=== PATIENT | male | born 1985 | race Caucasian/White ===

== ENCOUNTER → 2017-10-19 09:31 | Outpatient (CLI) | payer BC, SELFPAY ==
--- NOTE | 2017-10-19 09:39 | XR_ITS ---
XR hip RT 2-3V w/pelvis Ordering Physician: Lainey Escalante Patient Age: 32 years: Male HISTORY: ITS.REASON: CONTUSION OF RT HIP TECHNIQUE: AP frog-leg view right hip along with AP pelvis. Next field COMPARISON :None FINDINGS Right hip intact no fracture. Femoral head and neck and trochanteric region intact. The hip joint spaces well-maintained. Vague 12 mm mildly sclerotic area at the central at intertrochanteric region on AP view; and residing at the anterior osseous cortex, on the frog-leg view is noted. Likely reflects a small benign focus. & Doubt of significance but if pain persists or progresses this may warrant follow-up. Particular if gives history of significant pain which improves with aspirin . Osseous pelvis is intact. Left hip unremarkable. Sacrum, iliac bone superior and inferior ramus unremarkable... IMPRESSION: Right hip intact. No significant appearing findings. Minor observations in text.
== END ==
PROVIDERS: PCP Family Medicine; Visit Provider Nurse Practitioner
DX: S70.01XA Contusion of right hip, initial encounter (principal)
CPT/HCPCS: 73502

== ENCOUNTER → 2020-08-07 14:48 | Outpatient (CLI) | payer BC, SELFPAY ==
--- NOTE | 2020-08-07 14:59 | XR_ITS ---
PROCEDURE: XR MULTIPLE SPINE 6+V CLINICAL INDICATION: LOW BACK PAIN,SACROILIAC JOINT PAIN COMPARISON: No exams were available for comparison FINDINGS: No acute fractures or traumatic subluxation. Bone density is normal. The visualized thoracic and lumbar spine is un demonstrates normal alignment without a significant degenerative changes. Paravertebral soft tissues are unremarkable. Visualized lungs are clear. Bilateral visualized sacroiliac joints demonstrate no evidence of significant degenerative changes or asymmetric sclerosis. No evidence of sacroiliitis. IMPRESSION: Unremarkable thoracic and lumbar spine radiographs. Dictated by: Chiquita Piper 08/07/2020 17:18 Chiquita Piper in [facility] 08/07/2020 17:18
== END ==
PROVIDERS: PCP Family Medicine; Visit Provider Family Medicine
DX: M54.5 Low back pain (principal); M53.3 Sacrococcygeal disorders, not elsewhere classified
CPT/HCPCS: 72084

== ENCOUNTER 2020-08-20 07:56 | Outpatient (RCR) | payer BC, SELFPAY ==
--- NOTE | 2020-08-20 08:45 | HMH.PTOPEV ---
PT Outpatient Evaluation Rehab PT Outpatient Evaluation Start: 08/20/20 08:35 Freq: Status: Active Protocol: Document 08/20/20 08:35 CYNDIE (Rec: 08/20/20 08:45 CYNDIE [id number]) Electronically Signed By Ramirez Mckinney, PT 08/20/20 08:35 Outpatient Therapy Subjective History Subjective History Pt reports h/o chronic LBP since injury on 10/02/17 d/t fall from 2nd to 1st floor onto floor joists. Pt reports initial injury to B feet, R knee, and low back. Pt reports intermittent exacerbations of LBP since injury w/most recent ~3 weeks d/t heavy lifting episode. Pt reports R> L sided LBP from T-L junction to R glut area. Chief Complaint Pain,Spasms,Stiff Symptom Type Ache,Throb,Sharp,Dull Symptoms Relieved By Rest/Positioning,Heat Symptoms Aggravated By Bending/Stooping,Physical Activity,Lifting Prior Functional Limitations Lifting,Sitting,Bending/ Stooping Current Functional Limitations Lifting,Housework,Sitting, Bending/Stooping Symptom Description Constant but Variable Level of pain today (0-10) 6 Pain scale - at its best (0-10) 2 Pain scale - at its worst (0-10) 9 Lumbopelvic Eval Posture Thoracic Spine Posture Standing Position Neutral Lumbar Spine Posture Standing Position Flattened Assistive device Assistive Devices None / NA Gait Observation General Gait Pattern Observation No Deviations/Normal Palapation tenderness left lumbar spinal tenderness Yes: 2/4 paraspinal tenderness Yes: 2/4 right thoracic spinal tenderness Yes: 2/4 lumbar spinal tenderness Yes: 3/4 paraspinal tenderness Yes: 3/4 buttock tenderness Yes: 3/4 Lumbar/Sacral Palpation Findings Tenderness,Trigger Point, Muscle Guarding Accessory Movement T-spine Vertebrae Accessory Movements Central [place] that Elicit Symptoms T11 bilateral T12 bilateral L-spine Vertebrae Accessory Movements [place] that Elicit Symptoms L2 bilateral L3 bilateral L4 bilateral L5 bilateral Range of Motion Lumbar Spine Active Flexion Range of 0-70 Motion (degrees) Lumbar Spine Active Extension Range of 0-20 Motion (degrees)
== END 2020-08-20 07:59 | disposition home or self-care (01) ==
LOC: PT 07:56
PROVIDERS: PCP Family Medicine; Visit Provider Family Medicine
DX: M54.5 Low back pain (principal)
CPT/HCPCS: 97163

== ENCOUNTER 2024-01-18 10:23 | Outpatient (CLI) | payer OTHER, SELFPAY ==
[2024-01-18 20:29] LABS: T4 (Thyroxine) 8.5 ug/dl (5.53-11.0)
[2024-01-18 20:41] LABS: Thyroid Stimulating Hormone 1.42 uIU/mL (0.465-4.68)
== END 2024-01-18 23:59 | disposition home or self-care (01) ==
LOC: LAB.DROPOF 01-19 10:23
PROVIDERS: PCP Nurse Practitioner Acute Care; Visit Provider Nurse Practitioner Acute Care
DX: R53.83 Other fatigue (principal)
CPT/HCPCS: 84436; 84443

== ENCOUNTER 2024-02-24 08:00 | Outpatient (RCR) | payer OTHER, SELFPAY | END 2024-02-24 23:59 | disposition home or self-care (01) | LOC: OT 08:00 | PROVIDERS: PCP Nurse Practitioner Acute Care; Visit Provider Physician Assistant | DX: M25.531 Pain in right wrist (principal); M25.532 Pain in left wrist; Z98.890 Other specified postprocedural states | CPT/HCPCS: 97014; 97035; 97110; 97140; 97166; 97168; G0283 ==

== ENCOUNTER 2024-08-10 17:53 | Outpatient (CLI) | payer OTHER, SELFPAY ==
[2024-08-10 21:49] LABS: Coronavirus 19, PCR Not Detected (NotDetected); Influenza A, PCR Not Detected (NotDetected); Influenza B, PCR Not Detected (NotDetected); Respiratory Syncytial Virus Not Detected (NotDetected)
[2024-08-11 00:33] LABS: Human Rhinovirus Detected (NotDetected)
--- OUTSIDE RECORDS SUMMARY | 2024-08-12 13:36 | XMS_ITS | Continuity of Care Document ---
Author Organization [facility]. If a dditional information is needed, contact Health Information Management at [phone] [place] [address] Phone Care Team Providers Care Lotteries Agent Name Role Phone Unavailable Unavailable Unavailable Unavailable Unavailable Unavailable Unavailable Unavailable Unavailable Unavailable Unavailable Unavailable Unavailable Unavailable Unavailable Unavailable Unavailable Unavailable Unavailable Unavailable Unavailable Unavailable Unavailable Unavailable Problems Gastroenteritis Onset:23-Apr-2023 Migue Wolfe PA-C Status:Acute Nausea and vomiting Onset:23-Apr-2023 Migue Wolfe PA-C Status:Acute Anesthetics adverse reaction Onset:05-Nov-2022 Benjamin Daly MD Status:Acute Impaired cognition Onset:05-Nov-2022 Benjamin Daly MD Status:Acute Toothache Onset:08-Feb-2021 Jeancarlos Dodson MD Status:Acute Mental Status Cognitive function finding 26-Jun-2022 Functional Status Functional finding 23-Apr-2023 Functional finding 23-Apr-2023 Functional finding 23-Apr-2023 Functional finding 05-Nov-2022 Functional finding 05-Nov-2022 Functional finding 05-Nov-2022 Functional finding 24-Oct-2022 Functional finding 24-Oct-2022 Functional finding 24-Oct-2022 Functional finding 24-Oct-2022 Functional finding 12-Jun-2022 Functional finding 12-Jun-2022 Functional finding 12-Jun-2022 Functional finding 12-Jun-2022 Allergies and Adverse Reactions formaldehyde(Allergy) Onset: 23-Apr-2023 Reaction:Anaphylaxis quaternium 15(Allergy) Onset: 23-Apr-2023 Reaction:Anaphylaxis orange (food color)(Allergy) Onset: 23-Apr-2023 Reaction:STOMACH IRRITATION orange costing on pills(Dio rgy) Medications promethazine hydrochloride 2 5 MG Oral Tablet;25 MG ORAL Every 6 Hours as Needed Start:23-Apr-2023 Comments:25 mg PO Q6H PRN As Needed for Nausea ondansetron 4 MG Disintegrat ing Oral Tablet;4 MG ORAL Q6H Start:23-Apr-2023 Comments:4 mg PO Q6H APAP 325 MG / oxyCODONE Hydrochloride 10 MG Oral Tablet [Percocet];10-325 MG Orally every 4 hrs, 1 tablet as needed Quantity:18 JEAN MARIE ABHISHEK Start:31-Oct-2022 Comments:10-325 MG Orally every 4 hrs, 1 tablet as needed Roxicet 5-325 Tablet_ROXI1TA B5-AOM;1 TAB ORAL Q4H Start:29-Oct-2022 Comments:1 tab PO Q4H As Needed for Pain (Scale Score 7-10) fidaxomicin 200 mg tablet;20 0 MG ORAL Two Times a Day Start:26-Jun-2022 Status:Aborted Comments:200 mg PO BID acetaminophen 325 MG / HYDRO codone bitartrate 5 MG Oral Tablet;1 TAB ORAL Every 6 Hours as Needed Start:26-Jun-2022 Status:Aborted Comments:1 tab PO Q6H PRN As Needed for Severe Pain (Scale Score 7-10) sertraline 150 mg capsule;15 0 MG ORAL Daily Start:12-Jun-2022 Comments:150 mg PO DAILY Saxenda;3 MG subcut Daily Start:12-Jun-2022 Comments:3 mg SUBCUT DAILY Roxicet 5-325 Tablet_ROXI1TA B5-AOM;1 TAB ORAL Every 6 Hours as Needed Start:08-Feb-2021 Status:Aborted Comments:1 tab PO Q6H PRN As Needed for pain Tramadol HCl JEAN MARIE ABHISHEK Baclofen JEAN MARIE ABHISHEK Tizanidine HCl JEAN MARIE ABHISHEK Flexeril JEAN MARIE ABHISHEK Lortab JEAN MARIE ABHISHEK Zoloft JEAN MARIE ABHISHEK
--- OUTSIDE RECORDS SUMMARY | 2024-08-12 13:36 | XMS_ITS | Data Portability ---
Author Organization [facility] LATRICIA Tucker HANCOCK CLOSED Address [address] [place] [address] Care Team Providers Care Tractor Driver Name Role Phone RADHA THOMAS Primary Care Provider Assessment No assessment recorded. Plan of Treatment Reminders Order Date Submit Date Provider Last Modified By Organization Details Last Modified Time Details Appointments None recorded. Lab urinalysis panel, auto 2022 023 tatkinson [address] Sergey [place]ong, [place], [address], 3 10:19:22 urinalysis panel, auto 2022 [address] [place] [address] Sergey Duong, [place], [address], 3 09:36:40 Referral None recorded. Procedures None recorded. Surgeries None recorded. Imaging None recorded. Medication Orders oxycodone-a cetaminophe n 7.5 mg-325 mg tablet 2022 023 [facility] [place], [address], 3 10:19:35 oxycodone-a cetaminophe n 7.5 mg-325 mg tablet 2022 023 [facility] [address] [place], [address], 09:54:34 ondansetron HCl 4 mg tablet 2022 023 [facility] [address] [place], [address], 09:54:28 oxycodone-a cetaminophe n 7.5 mg-325 mg tablet 2022 023 [facility] [address] [place], [address], 09:02:37 doxycycline monohydrate 100 mg capsule 2022 023 [email or web address] 1 [facility] [address] [place], [address], 10:12:20 Patient TargetsNo targets recorded. Patient Instructions Encounter Date Encounter Id Patient Instructions Last Modified By Organization Details Last Modified Time 07/02/2022 [id number] Body Mass Index: Care Instructions-LC Not available 07/02/2022 09:01:57 07/04/2022 [id number] see notes above and in HPI Will call with results of scrotal US To continue doxycycline Advised that he can take ibuprofen in addition to his pain medication for pain relief Continue ice Return on Thursday for recheck with Dr. Dexter sam Not available 07/04/2022 09:36:18 07/18/2022 [id number] Body Mass Index: Care Instructions-LC Not available 07/18/2022 10:19:22 eating healthy foods: care instructions Not available 07/18/2022 10:19:22 Reason for Referral None Reported. Results Created Date Observation Date Name Description Value Unit Range Abnormal Flag Note LastModifiedBy Organization Detail LastModifiedTime 07/05/1907/04/2022 urina lysis panel , auto Unknown Analyte Clean Catch Not Available [facility] [address] [place], [place], [address], 07/04/2022 09:19:29 07/05/19 23 07/04/2022 urina lysis panel , auto Unknown Analyte Yellow Not Available [address] [place], [place], [address], 07/04/2022 09:19:29 07/05/1907/04/2022 urina lysis panel , auto Unknown Analyte Clear Not Available [address] [place], [place], [address], 07/04/2022 09:19:29 07/05/1907/04/2022 urina lysis panel , auto Unknown Analyte 1.020 Not Available [address] [place], [place], [address], 07/04/2022 09:19:29 07/05/1907/04/2022 urina lysis panel , auto Unknown Analyte 6.0 Not Available [address] [place], [place], [address], 07/04/2022 09:19:29 07/05/1907/04/2022 urina lysis panel , auto Unknown Analyte Negati ve Not Available [address] [place], [place], [address], 07/04/2022 09:19:29 07/05/1907/04/2022 urina lysis panel , auto Unknown Analyte Negati ve Not Available [address] [place], [place], [address], 07/04/2022 09:19:29 07/05/1907/04/2022 urina lysis panel , auto Unknown Analyte Negati ve Not Available [address] [place], [place], [address], 07/04/2022 09:19:29 07/05/1907/04/2022 urina lysis panel , auto Unknown Analyte Normal Not Available [address] [place], [place], [address], 07/04/2022 09:19:29 07/05/19 23 07/04/2022 urina lysis panel , auto Unknown Analyte Negati ve Not Available [address] [place], [place], [address], 07/04/2022 09:19:29 07/05/19 23 07/04/2022 urina lysis panel , auto Unknown Analyte Normal Not Available [address] [place], [place], [address], 07/04/2022 09:19:29 07/05/19 23 07/04/2022 urina lysis panel , auto Unknown Analyte Negati ve Not Available [address] [place], [place], [address], 07/04/2022 09:19:29 07/05/19 23 07/04/2022 urina lysis panel , auto Unknown Analyte Negati ve Not Available [address] [place], [place], [address], 07/04/2022 09:19:29 07/19/19 23 07/18/2022 urina lysis panel , auto Unknown Analyte Clean Catch Not Available [address] [place], [address], 07/18/2022 10:07:26 07/19/19 23 07/18/2022 urina lysis panel , auto Unknown Analyte Yellow Not Available [address] [place], [address], 07/18/2022 10:07:26 07/19/19 23 07/18/2022 urina lysis panel , auto Unknown Analyte Clear Not Available [address] [place], [address], 07/18/2022 10:07:26 07/19/19 23 07/18/2022 urina lysis panel , auto Unknown Analyte 1.020 Not Available [address] [place], [place], [address], 07/18/2022 10:07:26 07/19/19 23 07/18/2022 urina lysis panel , auto Unknown Analyte 5.0 Not Available [address] [place], [place], [address], 07/18/2022 10:07:26 07/19/19 23 07/18/2022 urina lysis panel , auto Unknown Analyte Negati ve Not Available [address] [place], [place], [address], 07/18/2022 10:07:26 07/19/19 23 07/18/2022 urina lysis panel , auto Unknown Analyte Negati ve Not Available [address] [place], [place], [address], 07/18/2022 10:07:26 07/19/19 23 07/18/2022 urina lysis panel , auto Unknown Analyte Negati ve Not Available [address] [place], [place], [address], 07/18/2022 10:07:26 07/19/19 23 07/18/2022 urina lysis panel , auto Unknown Analyte Normal Not Available [address] [place], [place], [address], 07/18/2022 10:07:26 07/19/19 23 07/18/2022 urina lysis panel , auto Unknown Analyte Negati ve Not Available [address] [place], [place], [address], 07/18/2022 10:07:26 07/19/19 23 07/18/2022 urina lysis panel , auto Unknown Analyte Normal Not Available [facility] [address] [place], [place], [address], 07/18/2022 10:07:26 07/19/19 23 07/18/2022 urina lysis panel , auto Unknown Analyte Negati ve Not Available [facility] [address] [place], [place], [address], 07/18/2022 10:07:26 07/19/19 23 07/18/2022 urina lysis panel , auto Unknown Analyte Negati ve Not Available [facility] [address] [place], [place], [address], 07/18/2022 10:07:26 07/05/19 23 07/04/2022 US, scrot um No observ ation [facility]. [email or web address] [address], [place], [address], 07/04/2022 14:15:08 Result Notes None recorded. Problems Name Problem SNOMED Code Status Onset Date Resolution Date Notes Provider Name and Address Organization Details Recorded Time Male sterilization Active 2022 JAMES RENTERIA MD [facility] [place], [address], [facility] 3 21:10:02 Epididymitis 53772685 Active 2022 [facility] [place], [address], [facility] 3 09:01:10 Body mass index 30+ - obesity 933234979 Active 2022 JAMES RENTERIA MD [address] [place] [address] [place], [address], [facility] 3 09:01:36 Pain in testicle 93925006 Active 2022 JAMES RENTERIA MD [facility] [place], [address], [place] [facility] 3 12:11:30 Problem Notes None recorded. Procedures Surgical History Date Name Laterality Status Provider Name and Address Organization Details Recorded Time 3 VASECTOMY (SURG) completed Not Available [facility] 07/01/2022 15:54:49 Imaging Results Imaging Date Name Status LastModified by Organiz ation Details LastModified Time 07/04/2022 US, scrotum completed oforth [facility] [address], [place], [address], 07/04/2022 14:15:08 Procedure Notes None recorded. Medical Equipment None Reported. Allergies Allergen ID Allergen Name Allergen Category Reaction Reaction Severity Criticality Documentation Date Start Date Code Code System Note Provider Name and Address Organization Details Recorded Time 188212 formalde yde environme nt,medica tion Not available Not available Not available 12/09/2019 4530 RxNorm Ananya Hidalgo [facility], [facility] 0 10:50:33 Medications Name Sig Start Date Stop Date Status Note LastModified by Organization Details LastModified Time ondansetron HCl 4 mg tablet Take 1 tablet every 6 hours by oral route. 2022 active Not Available Not Available Not Avai lable betamethaso ne, augmented 0.05 % topical cream APPLY A THIN LAYER TO THE AFFECTED AREA(S) BY TOPICAL ROUTE ONCE DAILY ; DO NOT EXCEED 50 GRAMS PER WK 06/06 completed Not Available Not Available Not Available Kenalog 40 mg/mL suspension for injection as directed 06/06 completed [facility] Not Available Not Available Not Available doxycycline monohydrate 100 mg capsule Take 1 capsule twice a day by oral route for 14 days. 07/18 completed Not Available Not Available Not Available hydrocodone 7.5 mg-acetamin ophen 325 mg tablet Take 1 tablet every 6 hours by oral route. 2022 active Not Available Not Available Not Avai lable diclofenac sodium 75 mg tablet,froilan yed release Take 1 tablet twice a day by oral route with meals. 06/06 completed Not Available Not Available Not Available oxycodone-a cetaminophe n 7.5 mg-325 mg tablet TAKE 1 TABLET BY MOUTH EVERY 6 HOURS NEEDED active Not Available Not Available No t Available Zoloft 100 mg tablet Take 1.5 tablets every day by oral route. active Not Available Not Available No t Available Saxenda 3 mg/0.5 mL (18 mg/3 mL) subcutaneou s pen injector Inject by subcutane ous route. active Not Available Not Available No t Available Vitals Date Recorded Body height Body mass index (BMI) Body weight Heart rate Systolic blood pressure Diastolic blood pressure Provider Name and Address Organization Details Last Updated DateTime 3 180.34 cm 34.9 kg/m2 653947. 09 g 70 /min 128 mm[Hg] 87 mm[Hg] Trish Feng [facility] 3 08:34:05 Date Recorded Body height Body mass index (BMI) Body weight Heart rate Systolic blood pressure Diastolic blood pressure Provider Name and Address Organization Details Last Updated DateTime 3 180.34 cm 35.3 kg/m2 823704. 87 g 89 /min 139 mm[Hg] 95 mm[Hg] [facility] 3 08:50:30 Date Recorded Body height Body mass index (BMI) Body weight Heart rate Systolic blood pressure Diastolic blood pressure Provider Name and Address Organization Details Last Updated DateTime 3 180.34 cm 34.4 kg/m2 658415. 32 g 97 /min 129 mm[Hg] 92 mm[Hg] [facility] 3 09:31:36 Date Recorded Body height Body mass index (BMI) Body weight Provider Name and Address Organization Details Last Updated DateTime 07/16/2022 180.34 cm 34.4 kg/m2 889674.32 g Brianda Montgomery [facility] 07/16/2022 09:30:10 Date Recorded Body height Body mass index (BMI) Body weight Heart rate Systolic blood pressure Diastolic blood pressure Provider Name and Address Organization Details Last Updated DateTime 3 180.34 cm 34.6 kg/m2 885536. 91 g 84 /min 120 mm[Hg] 87 mm[Hg] [facility] 10:07:05 Social History Question Answer Notes LastModified by Organization Details LastModified Time Tobacco Smoking Status Never Smoker Ananya Rocky aparicio, [facility] 12/09/2019 10:50:09 What Was The Date Of Your Most Recent Tobacco Screening? 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 Moderate [email or web address] Information not available 06/06/2022 Are you currently employed? 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 Family History Relationship Description Onset Age of this Age Resolved Age Notes LastModified by Organization Details LastModified Time Father Diabetes mellitus [email or web address] Not available 2022 10:42:27 Father Malignant neoplasm of skin [email or web address] Not available 2022 10:42:40 Sister Malignant tumor of breast Not available 2022 10:42:50 Medical History Condition Response Anxiety Disorder Y Asthma Y Past Encounters Encounter ID Performer Location Encounter Start Date Encounter Closed Date Diagnosis/Indication Diagnosis SNOMED-CT Code Diagnosis ICD10 Code Diagnosis Note [id number] ALBERTO JUSTICE MD [facility] [address] [place] [address] 05/01/2017 14:40:44 05/04/2017 10:07:39 Contact dermatitis 33350672 L25.9 rec, hx (+) quat-15 and formaldehy de, will tx and ref to Dr Verdugo. [id number] [facility] [address] [address] 12/09/2019 10:36:54 12/09/2019 11:22:12 Sprain of left ankle 9392223049 6800986 S93.402A [id number] [facility] [address] [place] [address] 12/30/2019 08:27:35 12/30/2019 09:17:17 Sprain of left ankle 9695924005 3601552 S93.402A [id number] JAMES RENTERIA MD UROLOGY [address] [address] 06/06/2022 10:50:26 06/06/2022 11:44:54 Male sterilization 338604968 Z30.2 Discussed procedure details and risks/bene fits of the procedureD iscussed MAC vs local anesthesia ; Patient elected to have MAC anesthesia Plan to schedule vasectomyR TC 1 week post op if needed Body mass index 30+ - obesity 514439827 Z68.35 [id number] JAMES RENTERIA MD UROLOGY [address] [address] 07/02/2022 08:16:56 07/02/2022 09:00:20 Male sterilization 959474011 Z30.2 vasectomy complete Body mass index 30+ - obesity 819352610 Z68.34 Epididymitis 24279963 N4 5.1 No scrotal hematoma presentNo flank hematomaPa in located primarily in left testiclePr esentation similar to epididymit isStart doxycyclin eRTC Thursday for recheck, if not improving plan to get scrotal US Pain in testicle 6486390 9 N50.819 [id number] IVAN TRISTAN PA-C UROLOGY [address] [address] 07/04/2022 08:41:34 07/04/2022 09:07:32 Epididymitis 91881128 N45.1 Continue doxycyclin eWill obtain scrotal US today and call with resultsPt to return to office on Thursday for recheckFML A papers to be filled out, off until Wi ll request physician to send more pain medication once results of ultrasound are received Male sterilization 58850 1000 Z30.2 vasectomy complete Pain in testicle 6451605 9 N50.819 will obtain Scrotal US today and call with results Body mass index 30+ - obesity 953930838 Z68.35 [id number] JAMES RENTERIA MD UROLOGY [address] [address] 07/07/2022 08:32:59 07/07/2022 09:51:45 Male sterilization 415370465 Z30.2 vasectomy complete Body mass index 30+ - obesity 884402212 Z68.34 Pain in testicle 4638388 9 N50.819 Continue doxycyclin e= scrotal US not overly consistent with epididymit isDiscusse d scrotal u/s= no hematoma, good arterial and venous blood flow, no lesions or massesPati ent given prescripti on for zofran and oxycodoneC ounseled to use miralax to avoid constipati on with the pain medication Patient given work release paperworkR TC in 2 weeks [id number] ADRIANA LUCAS MD [facility] [address] [place] [address] 07/16/2022 09:08:41 07/16/2022 16:33:35 Male sterilization 555664495 Z30.2 [id number] JAMES RENTERIA MD UROLOGY [address] [address] 07/18/2022 09:35:19 07/18/2022 10:19:46 Male sterilization 573546854 Z30.2 vasectomy completeRe fill on oxycodone- acetaminop henPatient was counseled that we will be doing a semen analysis in next 2 weeksPatie nt given work releaseRTC as needed Body mass index 30+ - obesity 791715285 Z68.34 Health Concerns Section Related Observation LastModified by Organization Detai ls LastModified Time None Recorded Concern Status LastModified by Organization Details LastModified Time None Recorded Advance Directives Directive None Recorded Payers Insurance Date Sequence Insurance Name Policy Number Policy An Covered Member ID An Member ID Guarantor Name 05/02/2022 1 LOTTIE-NAVYA: ABUNDIO [place] OF [place] (PPO) [id number] Xavier Layton [id number] Xavier Layton 07/15/2022 1 [facility] [id number] Xavier Layton [id number] Xavier Layton Notes Date Note Type Note Provider Name and Address Organization Details Recorded Time 07/02/2022 text/html Patient is a 36 year old {{male* female}} who presents to the clinic today s/p vasectomy with concerns of pain after the vasectomy. He relates that he is having severe testicular pain almost immediately following the procedure. He states that the pain is worse with movement. Pain is associated with nausea. He reports the pain will radiate to the pelvis. He believes that there might be an infection because the right testicle is red and swollen. JAMES RENTERIA MD [address] [place] [address], [address], [facility] 07/02/2022 12:06:28 07/04/2022 text/html Patient is a 36-year-old male who presents today for follow-up after pain after his recent vasectomy. On record review:Dr. Renteria performed a vasectomy on , June 26, 2022. There were no complications.Pain medication was sent to the pharmacy after his procedure but medication was apparently on backorder.On 06/30/2022 patient was prescribed Percocet 7-1/2 mg every 6 hours as needed #12 Patient was seen in the office by Dr. Renteria on Thursday, July 02, 2022. Patient had noted that he was having severe testicular pain almost immediately after the procedure. Pain worse with any movement and associated with nausea. Pain radiating to the pelvis. Patient was concerned for possible infection as he believed the right testicle to be red and swollen.On exam Dr. Renteria noted mild left testicular swelling and severe tenderness to palpation over the posterior aspect of the left testicle. Particularly severe tenderness to palpation over the left epididymis. Dr. Renteria noted that there was no scrotal or flank hematoma present. [place] that he may have an epididymitis and prescribed doxycycline 100 mg twice a day for 14 days.He again renewed the pain medicine Percocet 7-1/2 mg every 6 hours as needed #12. TODAY Describes still having a lot of sensitivity to left testicle. Feels that since being seen 2 days and starting doxycycline pain has gone from 9/10 to 8/10 on pain scale Movement seems to make the pain worseRest is improving the painUsing Bossmans been needing pain medication every 6 hours, can tell if he does not take the pain medication. Has 6 pills leftPain worse with picking up anything No dysuria, hematuria, increased urinary frequency.No fever or chills. No nausea or vomitingFeels that incision is red and with pus drainingFeels that there is an open wound thereHas been using triple antibiotic ointmentFeels that there may be a blotchy red pattern to the skin of the testicle IVAN TRISTAN PA-C [address] [place], [address], [facility] 07/04/2022 09:36:44 07/07/2022 text/html Patient is a 36 year old {{male* female}} who presents to the clinic today s/p vasectomy with concerns of pain after the vasectomy. Reviewed scrotal u/s 07/04/22:Benign u/s Pain minimally improved. Limits mobility. Pain in left groin and lower abdomen much better. Still with left testicular pain He is currently managing with doxycyline. C/o nausea. JAMES RENTERIA MD [address] [place] [address], [address], [facility] 07/08/2022 12:11:49 07/16/2022 text/html [facility] He underwent a vasectomy 06/26/2022. He still having some discomfort. He said that postoperatively he had a degree of swelling. That has improved but he is still having discomfort. Examination shows minimal swelling. Incisions healed without any problem. I reassured him that this is normal and the discomfort will go away soon ADRIANA LUCAS MD [facility] [place], [address], [facility] 07/16/2022 12:24:51 07/18/2022 text/html Patient is a 36 year old {{male* female}} who presents to the clinic today s/p vasectomy with concerns of pain after the vasectomy. Reviewed scrotal u/s 07/04/22:Benign u/s Reviewed Dr. Lucas's note from 07/16/22 Patient reports that he is still experiencing pain but it has improved. Certain movements will worsen the pain. He still is using the pain medication intermittently. JAMES RENTERIA MD [facility] [place], [address], [facility] 07/18/2022 10:20:47
== END 2024-08-10 23:59 | disposition home or self-care (01) ==
LOC: LAB.DROPOF 08-12 13:35
PROVIDERS: PCP Nurse Practitioner; Visit Provider Nurse Practitioner
DX: R50.9 Fever, unspecified (principal)
CPT/HCPCS: 87631

== ENCOUNTER 2024-10-27 11:05 | Outpatient (RCR) | payer OTHER, SELFPAY | END 2024-10-27 23:59 | disposition home or self-care (01) | LOC: OT 11:05 | DX: M77.11 Lateral epicondylitis, right elbow (principal); G56.03 Carpal tunnel syndrome, bilateral upper limbs | CPT/HCPCS: 97166 ==

== ENCOUNTER 2024-11-25 10:00 | Outpatient (RCR) | payer OTHER, SELFPAY | END 2024-11-25 23:59 | disposition home or self-care (01) | LOC: OT 10:00 | DX: M77.11 Lateral epicondylitis, right elbow (principal); G56.03 Carpal tunnel syndrome, bilateral upper limbs | CPT/HCPCS: 97014; 97035; 97110; 97140; 97168; 97530; G0283 ==

== ENCOUNTER 2024-12-19 07:56 | Outpatient (RCR) | payer OTHER, SELFPAY | END 2024-12-19 23:59 | disposition home or self-care (01) | LOC: OT 07:56 | DX: M77.11 Lateral epicondylitis, right elbow (principal); G56.03 Carpal tunnel syndrome, bilateral upper limbs | CPT/HCPCS: 97014; 97110; 97140; G0283 ==